=== PATIENT | female | born 1975 | race Caucasian/White ===

== ENCOUNTER → 2024-04-09 18:05 | Outpatient (REF) | payer OTHER, SELFPAY | LOC: WDC 18:05 | PROVIDERS: ATTENDING PHYSICIAN Family Medicine | DX: Z12.31 Encounter for screening mammogram for malignant neoplasm of breast (principal) | CPT/HCPCS: 77063; 77067 ==

== ENCOUNTER → 2024-07-12 09:12 | Outpatient (REF) | payer OTHER, SELFPAY | LOC: PAVMRI 09:12 | PROVIDERS: ATTENDING PHYSICIAN Physician Assistant; FAMILY PHYSICIAN Family Medicine | DX: M53.3 Sacrococcygeal disorders, not elsewhere classified (principal) | CPT/HCPCS: 72197; A9575 ==

== ENCOUNTER → 2025-04-16 18:15 | Outpatient (REF) | payer OTHER, SELFPAY | LOC: WDC 18:15 | PROVIDERS: ATTENDING PHYSICIAN Family Medicine | DX: Z12.31 Encounter for screening mammogram for malignant neoplasm of breast (principal) | CPT/HCPCS: 77063; 77067 ==

== ENCOUNTER → 2025-09-13 07:23 | Outpatient (REF) | payer OTHER, SELFPAY | LOC: HWRAD 07:23 | PROVIDERS: ATTENDING PHYSICIAN Student in an Organized Health Care Education/Training Program; FAMILY PHYSICIAN Family Medicine | DX: R10.13 Epigastric pain (principal) | CPT/HCPCS: 76700 ==